=== PATIENT | female | born 1980 | race Two or more races ===

== ENCOUNTER 2017-02-27 10:09 | Emergency (ER) | payer OTHER ==
[~2017-02-27] VITALS: Ht 152.4 cm; Wt 72.6 kg
[2017-02-27 10:40] VITALS: BP 144/95
[2017-02-27 10:54] LABS: BASOPHILS % (AUTO) 0.5 % (0.0-2.0); EOSINOPHILS % (AUTO) 0.6 % (0.0-6.0); HEMATOCRIT 36 % (33-45); LYMPHOCYTES # (AUTO) 1.7 /CMM (0.8-4.8); LYMPHOCYTES % (AUTO) 25.2 % (20.0-44.0); MEAN CORPUSCULAR HEMOGLOBIN 29 PG (26.0-33.0); MEAN CORPUSCULAR HGB CONC 34 g/dl (31.0-36.0); MEAN CORPUSCULAR VOLUME 86 fL (82-100); MONOCYTES # (AUTO) 0.4 /CMM (0.1-1.30); MONOCYTES % (AUTO) 5.4 % (2.0-12.0); NEUTROPHILS # (AUTO) 4.7 /CMM (1.8-8.9); NEUTROPHILS % (AUTO) 68.3 % (43.0-81.0); PLATELET COUNT (AUTO) 290 /CMM (150-450); RDW COEFFICIENT OF VARIATION 12.6 (11.5-15.0); RED BLOOD CELL COUNT(AUTO) 4.16 MIL/uL (4.0-5.2); WHITE BLOOD COUNT (AUTO) 6.8 K/uL (4.3-11.0)
[2017-02-27] MEDS ORDERED: IV NS 0.9% 1,000 ML BAG IV ONE (11:00)
[2017-02-27] MEDS ORDERED: ONDANSETRON HCL/PF 4 MG/2 ML VIAL IVP ONE (11:00)
[2017-02-27] MEDS ORDERED: IV SET PRIMARY 1 EA INFUS.SET MC ONE (11:03)
[2017-02-27] MEDS ORDERED: IV NS 0.9% 1,000 ML ONE (11:03)
[2017-02-27] MEDS ORDERED: ONDANSETRON HCL/PF 4 MG/2 ML VIAL ONE (11:03)
[2017-02-27 11:06] LABS: CALCIUM, SERUM 8.7 mg/dL (8.5-10.1); CREATININE 0.7 mg/dL (0.6-1.3); POTASSIUM 3.1 mmol/L (3.5-5.1)
[2017-02-27 11:12] LABS: ALBUMIN 3.7 g/dL (3.4-5.0); BILIRUBIN,DIRECT 0.1 mg/dL (0.0-0.2); BILIRUBIN,TOTAL 0.4 mg/dL (0.2-1.0); TOTAL PROTEIN, SERUM 7.1 g/dL (6.4-8.2)
--- NOTE | 2017-02-27 11:15 | NUR ---
IV ACCESS STARTED. PT MEDICATED ORDERED. URINE SAMPLE OBTAINED.
--- NOTE | 2017-02-27 11:16 | NUR ---
ASSUMED CARE OF PT AT THIS TIME. NAD NOTED.
[2017-02-27] MEDS ORDERED: POTASSIUM CHLORIDE 20 MEQ TAB.PRT.SR PO ONE ×2 (11:30→11:54)
--- NOTE | 2017-02-27 11:50 | NUR ---
IV removed per pt request because pt states "I have to go smoke". Pt requested to have IV removed at this time and states she will consent to reinsertion when she comes back inside. Catheter intact and site benign. Pressure and 4x4 applied to site. No bleeding noted. Addendum: 02/27/17 at 1206 by HFOX PT WAS TOLD THAT SHE STILL NEEDS TO BE GIVEN KDUR ORDERED; PT REPORTS SHE WILL COME BACK INSIDE AFTER SMOKING AND TAKE ORDERED MEDS AND CONTINUE TREATMENT.
--- NOTE | 2017-02-27 12:21 | NUR ---
PT IS NOT IN ROOM OR IN BATHROOM. PT HAS NOT RETURNED FROM GOING OUTSIDE TO SMOKE. PT ELOPED FROM FACILITY. AWARE.
== END 2017-02-27 12:25 | disposition left against medical advice (07) ==
LOC: ER 10:11
DX: R11.2 Nausea with vomiting, unspecified (principal); R19.7 Diarrhea, unspecified; F32.9 Major depressive disorder, single episode, unspecified; F41.9 Anxiety disorder, unspecified; Z88.8 Allergy status to other drugs, medicaments and biological substances; F17.200 Nicotine dependence, unspecified, uncomplicated
CPT/HCPCS: 36415; 80048-TC; 80076-TC; 84703-TC; 85025-TC; A4606; J2405; J7030; Z7610